=== PATIENT | female | born 1975 | race Two or more races ===

== ENCOUNTER 2024-01-08 03:58 | Emergency (ER) | payer MEDICAID ==
[~2024-01-08] VITALS: Ht 165.1 cm; Wt 101.3 kg
--- NOTE | 2024-01-08 04:19 | ED.PDOC ---
HPI (NEURO) HPI Comments 48 here for headaches. Patient states for the past 2 days she has been having headaches, diffuse, 10/10 intensity, she described it as the worst headache of her life. States headache worsens with head movement. And associated with dizziness. She denies any blurring of vision, slurring her speech, no nausea no vomiting, and no unilateral weakness or numbness. Blood pressure upon arrival was 151/87 mm Hg Chief Complaint: Headache Time Seen by MD: 04:18 Reviewed Notes: Nurses Notes Information Source: Patient Mode of Arrival: Ambulatory Severity: Moderate Dizziness/Weakness Severity: Unable to do activities Headache Severity: Severe, Worst Headache of life Timing: Days Duration: Since onset Prehospital treatment: None Headache Quality: Throbbing Headache Location: Generalized Onset: With light exertion Circumstances: Spontaneous Symptoms: Other (Headache) Associated Signs and Symptoms: Headache Past Medical History PAST MEDICAL HISTORY: Denies Surgical History: Denies all surgeries LEHR ATTENDANT History: Denies all LEHR ATTENDANT Hx Family History Family History: Reviewed,noncontributory to illness Social History Smoker: Non-Smoker Alcohol: Denies ETOH Use Drugs: Denies Drug Use Lives In: Home Constitutional: denies: chills, diaphoresis, fatigue, fever, malaise, sweats, weakness, others EENTM: denies: blurred vision, double vision, ear bleeding, ear discharge, ear drainage, ear pain, ear ringing, eye pain, eye redness, hearing loss, mouth pain, mouth swelling, nasal discharge, nose bleeding, nose congestion, nose pain, photophobia, tearing, throat pain, throat swelling, voice changes, others Respiratory: denies: cough, hemoptysis, orthopnea, SOB at rest, shortness of breath, SOB with excertion, stridor, wheezing, others Cardiovascular: denies: chest pain, dizzy spells, diaphoresis, Dyspnea on exertion, edema, irregular heart beat, left arm pain, lightheadedness, palpitations, PND, syncope, others Gastrointestinal: denies: abdomen distended, abdominal pain, blood streaked bowels, constipated, diarrhea, dysphagia, difficulty swallowing, hematemesis, melena, nausea, poor appetite, poor fluid intake, rectal bleeding, rectal pain, vomiting, others Genitourinary: denies: abnormal vagina bleeding, burning, dyspareunia, dysuria, flank pain, frequency, hematuria, incontinence, pain, , vagina discharge, urgency, others Neurological: reports: dizziness, headache; denies: fainting, left sided numbness, left sided weakness, numbness, paresthesia, pre-existing deficit, right sided numbness, right sided weakness, seizure, speech problems, tingling, tremors, weakness, others Musculoskeletal: denies: back pain, gout, joint pain, joint swelling, muscle pain, muscle stiffness, neck pain, others Integumetry: denies: bruises, change in color, change in hair/nails, dryness, laceration, lesions, lumps, rash, wounds, others Allergic/Immunocompromised: denies: Difficulty Healing, Frequent Infections, Hives, Itching, others Hematologic/Lymphatic: denies: anemia, blood clots, easy bleeding, easy bruising, swollen glands, others Endocrine: denies: excessive hunger, excessive sweating, excessive thirst, excessive urination, flushing, intolerance to cold, intolerance to heat, unexplained weight gain, unexplained weight loss, others Psychiatric: denies: anxiety, bipolar disorder, depression, hopeless, panic disorder, schizophrenia, sleepless, suicidal, others Physical Exam General Appearance: No Apparent Distress, Normal HEENT: Normal ENT Inspection, Pharynx Normal, TMs Normal Neck: Full Range of Motion, Non-Tender, Normal, Normal Inspection Respiratory: Chest Non-Tender, Lungs Clear, No Accessory Muscle Use, No Respiratory Distress, Normal Breath Sounds Cardiovascular: No Edema, No JVD, No Murmur, No Gallop, Normal Peripheral Pu lses, Regular Rate/Rhythm Breast Exam: Deferred Gastrointestinal: No Organomegaly, Non Tender, No Pulsatile Mass, Normal Bowel Sounds, Soft Genitalia: Deferred Pelvic: Deferred Rectal: Deferred Extremities: No calf tenderness, Normal capillary refill, Normal inspection, Normal range of motion, Non-tender, No pedal edema Musculoskeletal : Apperance: Normal Neurologic: Alert, 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 Was a procedure done?: No Differential Diagnosis (SZ) Headache: Cluster, Migraine, CVA, Sinusitis X-Ray, Labs, Meds, VS Vital Signs Date Time Temp Pulse Resp B/P (MAP) Pulse Ox O2 Delivery O2 Flow Rate FiO2 01/08/24 04:10 97.9 77 18 151/87 (108) 97 Lab Test 01/08/24 04:20 Range/Units White Blood Count 8.1 4.4-10.8 10^3/uL Red Blood Count 5.41 H 4.0-5.20 10^6/uL Hemoglobin 15.8 12.2-16.2 g/dL Hematocrit 47.0 H 36.0-46.0 % Mean Corpuscular Volume 86.9 80.0-100.0 fL Mean Corpuscular Hemoglobin 29.1 28.0-32.0 pg Mean Corpuscular Hemoglobin Concent 33.5 32.0-36.0 g/dL Red Cell Distribution Width 14.1 11.8-14.3 % Platelet Count 247 140-450 10^3/uL Mean Platelet Volume 8.7 6.9-10.8 fL Neutrophils (%) (Auto) 63.6 37.0-80.0 % Lymphocytes (%) (Auto) 27.6 10.0-50.0 % Monocytes (%) (Auto) 5.1 0.0-12.0 % Eosinophils (%) (Auto) 2.9 0.0-7.0 % Basophils (%) (Auto) 0.8 0.0-2.0 % Neutrophils # (Auto) 5.1 1.6-8.6 10 ^3/uL Lymphocytes # (Auto) 2.2 0.4-5.4 10 ^3/uL Monocytes # (Auto) 0.4 0-1.3 10 ^3/uL Eosinophils # (Auto) 0.2 0-0.8 10 ^3/uL Basophils # (Auto) 0.1 0-0.2 10 ^3/uL Nucleated Red Blood Cells 0.1 % Prothrombin Time 10.7 9.3-11.8 sec Prothrombin Time INR 1.01 0.9-1.15 Sodium Level 140 136-145 mmol/L Potassium Level 4.3 3.5-5.1 mmol/L Chloride Level 108 H 98-107 mmol/L Carbon Dioxide Level 25 20-31 mmol/L Anion Gap 7 5-15 Blood Urea Nitrogen 11 9-23 mg/dL Creatinine 0.80 0.550-1.02 mg/dL Glomerular Filtration Rate Calc 91 >90 mL/min BUN/Creatinine Ratio 13.8 10.0-20.0 Serum Glucose 115 H 74-106 mg/dL Calcium Level 9.5 8.7-10.4 mg/dL Beta HCG, Quantitative 0.1 L 1.5-4.2 mIU/mL Current Medications Medications (Trade) Dose Ordered Sig/Giovanny Route Start Time Stop Time Status Last Admin Acetaminophen/ Hydrocodone Bitart ([place] 10/325MG Tab) 1 tab ONCE ONCE PO 01/08/24 04:15 01/08/24 04:16 DC 01/08/24 04:22 Metoclopramide HCl (Reglan Tablet) 10 mg ONCE ONCE PO 01/08/24 04:15 01/08/24 04:16 DC 01/08/24 04:22 Diphenhydramine HCl (Benadryl Capsule) 25 mg ONCE ONCE PO 01/08/24 04:15 01/08/24 04:16 DC 01/08/24 04:21 CT HEAD WITHOUT CONTRAST INDICATION: severe headache EXAM DATE: 01/08/2024 04:23 AM COMPARISON: None RADIATION DOSE: CTDIvol: 57.5 mGy, DLP: 1134.09 mGy*cm Technique: CT scans of the head were obtained from the vertex to the skull base. Sagittal and coronal reconstructions were provided. All CT scans at this medical facility are performed using dose modulation techniques as appropriate to a performed exam including the following: Automated exposure control was utilized; adjustment of the MA and/or KV according to patient size; and use of iterative reconstruction technique. FINDINGS: Posterior fossa demonstrates a 4th ventricle to midline with MS impression. The ventricles appear appropriate in size and symmetry. No intracranial mass lesion or midline shift. Mild mucosal sinus thickening of the right maxillary sinus and anterior ethmoid air cells. IMPRESSION: 1. No acute intracranial abnormality. 2. Mild maxillary and ethmoid air cell sinus disease. Time of 1ST Reevaluation: 04:15 Reevaluation 1ST: Unchanged Time of 2ND Reevaluation: 05:51 Reevaluation 2ND: Improved Patient Education/Counseling: Diagnosis, Treatment Family Education/Counseling: No Family Present Departure 1 Departure Time of Disposition: 05:51 Impression: Primary Impression: Acute headache Disposition: 01 HOME / SELF CARE / HOMELESS Condition: Stable e-Prescriptions Gabapentin (Gabapentin) 300 Mg Cap 1 CAP PO TID PRN for 10 Days, #60 CAP 5 Refills Prov: CECE SAHNI MD 01/08/24 Discharged With: Self, Relative Critical Care Note Critical Care Time?: No Stability Stability form required: No Heart Score Heart Score: Heart Score Response (Comments) Value History N/A 0 EKG N/A 0 Age N/A 0 Risk Factors N/A 0 Troponin N/A 0 Total 0 I personally scribed for CECE SAHNI MD ([place]) on 01/08/24 at 04:19. Electronically submitted by Jairo Bowles ([facility]). I personally scribed for CECE SAHNI MD ([place]) on 01/08/24 at 04:20. Electronically submitted by Jairo Bowles ([facility]). I personally scribed for CECE SAHNI MD ([place]) on 01/08/24 at 05:26. Electronically submitted by Jairo Bowles ([facility]). CECE SAHNI MD Jan 08, 2024 04:19
[2024-01-08] MEDS: diphenhdrAMINE HCL 25 MG CAP PO ONE (04:21)
[2024-01-08] MEDS: HYDROcodone-ACET 10/325MG TAB PO ONE (04:22)
[2024-01-08] MEDS: METOCLOPRAMIDE HCL 10 MG TAB PO ONE (04:22)
[2024-01-08 04:30] LABS: Basophils # (auto) 0.1 10 ^3/uL (0-0.2); Basophils % (auto) 0.8 % (0.0-2.0); Eosinophils # (auto) 0.2 10 ^3/uL (0-0.8); Eosinophils % (auto) 2.9 % (0.0-7.0); Hemoglobin 15.8 g/dL (12.2-16.2); Lymphocytes # (auto) 2.2 10 ^3/uL (0.4-5.4); Lymphocytes % (auto) 27.6 % (10.0-50.0); Mean Corpuscular Hemoglobin 29.1 pg (28.0-32.0); Mean Corpuscular Hgb Conc. 33.5 g/dL (32.0-36.0); Mean Corpuscular Volume 86.9 fL (80.0-100.0); Monocytes # (auto) 0.4 10 ^3/uL (0-1.3); Monocytes % (auto) 5.1 % (0.0-12.0); Neutrophils # (auto) 5.1 10 ^3/uL (1.6-8.6); Neutrophils % (auto) 63.6 % (37.0-80.0); Nucleated Red Blood Cells % 0.1 %; Platelet Count (auto) 247 10^3/uL (140-450); Red Blood Cells 5.41 10^6/uL (4.0-5.20); Red Cell Distribution Width 14.1 % (11.8-14.3); White Blood Cell 8.1 10^3/uL (4.4-10.8)
[2024-01-08 04:41] LABS: Potassium 4.3 mmol/L (3.5-5.1); Sodium 140 mmol/L (136-145)
[2024-01-08 04:42] LABS: Anion Gap 7 (5-15); Calcium 9.5 mg/dL (8.7-10.4); Carbon Dioxide 25 mmol/L (20-31)
[2024-01-08 04:44] LABS: INR 1.01 (0.9-1.15); Prothrombin Time 10.7 sec (9.3-11.8)
[2024-01-08 04:47] LABS: BUN/Creatinine Ratio 13.8 (10.0-20.0); Blood Urea Nitrogen 11 mg/dL (9-23)
[2024-01-08 04:55] LABS: Chloride 108 mmol/L (98-107); Glucose 115 mg/dL (74-106)
--- NOTE | 2024-01-08 05:15 | DVH ---
CT HEAD WITHOUT CONTRAST INDICATION: severe headache EXAM DATE: 01/08/2024 04:23 AM COMPARISON: None RADIATION DOSE: CTDIvol: 57.5 mGy, DLP: 1134.09 mGy*cm Technique: CT scans of the head were obtained from the vertex to the skull base. Sagittal and coronal reconstructions were provided. All CT scans at this medical facility are performed using dose modulation techniques as appropriate t o a performed exam including the following: Automated exposure control was utilized; adjustment of th e MA and/or KV according to patient size; and use of iterative reconstruction technique. FINDINGS: Posterior fossa demonstrates a 4th ventricle to midline with MS impression. The ventricles appear ap propriate in size and symmetry. No intracranial mass lesion or midline shift. Mild mucosal sinus thic kening of the right maxillary sinus and anterior ethmoid air cells. IMPRESSION: 1. No acute intracranial abnormality. 2. Mild maxillary and ethmoid air cell sinus disease.
[2024-01-08 05:25] VITALS: BP 135/60; PULSE 75; RESP 16; TEMP 98.1; O2SAT 98
[2024-01-08] MEDS ORDERED: GABA-1250 PO (05:30)
== END 2024-01-08 06:25 | disposition home or self-care (01) ==
LOC: ER 03:58
DX: R51.9 Headache, unspecified (principal); R10.2 Pelvic and perineal pain; Z79.899 Other long term (current) drug therapy
CPT/HCPCS: 36415; 70450; 80048; 84702; 85025; 85610; 99284; J8597